=== PATIENT | female | born 1990 | race Caucasian/White ===

== ENCOUNTER 2017-01-27 11:29 | Outpatient (CLI) | payer OTHER ==
[~2017-01-27] VITALS: Ht 167.6 cm; Wt 86.4 kg
[2017-01-27 11:41] VITALS: BP 132/89
[2017-01-27 12:31] LABS: HEMATOCRIT 43.2 % (34.6-47.8); HEMOGLOBIN 14.4 g/dL (11.7-16.4); WHITE BLOOD COUNT 10.2 x10^3/uL (3.4-10)
[2017-01-27 12:36] LABS: PATH.CAST-FLAG NOT PRESENT; SPERM-FLAG NOT PRESENT; SRC-FLAG NOT PRESENT; XTAL-FLAG NOT PRESENT; YLC-FLAG NOT PRESENT
[2017-01-27 12:45] LABS: ASPARTATE AMINO TRANSFERASE 21 U/L (15-37); BLOOD UREA NITROGEN 11 mg/dL (7-18)
== END 2017-01-27 13:43 | disposition home or self-care (01) ==
LOC: LDOP 11:29
PROVIDERS: ATTEND Obstetrics & Gynecology
DX: O13.3 Gestational [pregnancy-induced] hypertension without significant proteinuria, third trimester (principal); Z3A.39 39 weeks gestation of pregnancy
CPT/HCPCS: 36415; 59025; 80053; 81001; 82248; 82570; 84156; 84550; 85025; 86900; 99211; G0463

== ENCOUNTER 2017-01-28 02:17 | Inpatient (IN) | payer OTHER ==
[~2017-01-28] VITALS: Ht 167.6 cm; Wt 86.4 kg
[2017-01-28] MEDS ORDERED: OXYTOCIN 30U/ 0.9% NaCL 500ML 500 ML IV ONE (02:35)
[2017-01-28] MEDS ORDERED: NEWBORN KIT ONE (02:42)
[2017-01-28] MEDS ORDERED: OXYTOCIN 30U/ 0.9% NaCL 500ML 500 ML ONE ×2 (02:42→12:57)
[2017-01-28 02:43] VITALS: BP 136/88
[2017-01-28] MEDS ORDERED: LIDOCAINE 1%, 20ML ONE (02:49)
[2017-01-28] MEDS ORDERED: MISOPROSTOL 200 MCG TABLET ONE (02:49)
[2017-01-28] MEDS: LACTATED RINGERS 1,000 ML IV SCH ×2 (02:56→05:40)
[2017-01-28] MEDS: D5%-LACTATED RINGERS 1,000 ML IV SCH ×2 (02:56→05:44)
[2017-01-28 02:59] LABS: HEMATOCRIT 40.9 % (34.6-47.8); HEMOGLOBIN 13.6 g/dL (11.7-16.4); WHITE BLOOD COUNT 11.8 x10^3/uL (3.4-10)
[2017-01-28 02:59] LABS: PATH.CAST-FLAG NOT PRESENT; SPERM-FLAG NOT PRESENT; SRC-FLAG NOT PRESENT; XTAL-FLAG NOT PRESENT; YLC-FLAG NOT PRESENT
[2017-01-28] MEDS ORDERED: FENTANYL PF 100 MCG/2ML IVPush PRN (03:00)
[2017-01-28] MEDS ORDERED: ONDANSETRON 2MG/ML, 2ML IVPush PRN (03:00)
[2017-01-28] MEDS ORDERED: CALCIUM CARBONATE 500 MG TAB.CHEW PO PRN (03:00)
[2017-01-28] MEDS ORDERED: FENTANYL PF 100 MCG/2ML IV PRN (03:00)
[2017-01-28 03:20] LABS: ASPARTATE AMINO TRANSFERASE 16 U/L (15-37); BLOOD UREA NITROGEN 10 mg/dL (7-18)
[2017-01-28 03:23] LABS: LACTATE DEHYDROGENASE 154 U/L (84-246)
[2017-01-28] MEDS ORDERED: FENTANYL PF 100 MCG/2ML ONE (12:12)
[2017-01-28] MEDS ORDERED: IBUPROFEN 600 MG TABLET ONE (12:52)
[2017-01-28] MEDS ORDERED: OXYcodone/APAP 5/325MG TABLET ONE (12:53)
[2017-01-28] MEDS ORDERED: IBUPROFEN 600 MG TABLET PO PRN ×2 (13:00→20:30)
[2017-01-28] MEDS ORDERED: DOCUSATE 100 MG CAPSULE PO PRN (13:00)
[2017-01-28] MEDS ORDERED: CARBOPROST TROMETHAMINE 250 MCG/ML, 1ML IM PRN ×2 (13:00→20:30)
[2017-01-28] MEDS ORDERED: BISACODYL 10 MG SUPP PR PRN ×2 (13:00→20:30)
[2017-01-28] MEDS ORDERED: OXYcodone/APAP 5/325MG TABLET PO PRN ×2 (13:00)
[2017-01-28] MEDS ORDERED: METOCLOPRAMIDE 5 MG/ML, 2ML IV PRN ×2 (13:00→20:30)
[2017-01-28] MEDS: OXYTOCIN 30U/ 0.9% NaCL 500ML 500 ML IV SCH ×2 (13:00→22:53)
[2017-01-28] MEDS ORDERED: ONDANSETRON 2MG/ML, 2ML IV PRN ×2 (13:00→20:30)
[2017-01-28] MEDS ORDERED: ACETAMINOPHEN 325 MG TABLET PO PRN ×2 (13:00→20:30)
[2017-01-28] MEDS ORDERED: MISOPROSTOL 200 MCG TABLET PR PRN ×2 (13:00→20:30)
[2017-01-28] MEDS ORDERED: GLYCERIN ADULT SUPP PR PRN ×2 (13:00→20:30)
[2017-01-28 14:50] VITALS: BP 128/89
[2017-01-28 17:00] VITALS: BP 146/95
[2017-01-28] MEDS ORDERED: LACTATED RINGERS 500 ML IVBOLUS ONE (17:30)
[2017-01-28 17:37] LABS: HEMATOCRIT 36.6 % (34.6-47.8); HEMOGLOBIN 12.2 g/dL (11.7-16.4); WHITE BLOOD COUNT 20.1 x10^3/uL (3.4-10)
[2017-01-28] MEDS: DOCUSATE 100 MG CAPSULE PO PRN (20:23)
[2017-01-28 20:30] VITALS: BP 130/83
[2017-01-28] MEDS ORDERED: MEASLES,MUMPS&RUBELLA VACC/PF 0.5 ML SQ-VACC ONE (22:30)
[2017-01-29 00:28] VITALS: BP 130/84
[2017-01-29 04:30] VITALS: BP 133/88
[2017-01-29] MEDS: OXYTOCIN 30U/ 0.9% NaCL 500ML 500 ML IV SCH (04:49)
[2017-01-29 07:51] VITALS: BP 136/97
[2017-01-29] MEDS: DOCUSATE 100 MG CAPSULE PO PRN (08:10)
[2017-01-29] MEDS ORDERED: PRENATAL VIT/IRON/FA 1 EACH TABLET PO SCH ×2 (09:00)
[2017-01-29] MEDS ORDERED: IBUP-1222 PO (10:00)
[2017-01-29] MEDS ORDERED: OXYC-302 PO (10:01)
== END 2017-01-29 12:30 | disposition home or self-care (01) | DRG 775 ==
LOC: LDOP 02:17 → LDIP 02:52 → 2NW 14:32
PROVIDERS: ADMIT Obstetrics & Gynecology; ATTEND Obstetrics & Gynecology
PROC: 10E0XZZ Delivery of Products of Conception, External Approach (ICD-10-PCS; principal; 2017-01-28)
PROC: 0HQ9XZZ Repair Perineum Skin, External Approach (ICD-10-PCS; 2017-01-28)
PROC: 3E0234Z Introduction of Serum, Toxoid and Vaccine into Muscle, Percutaneous Approach (ICD-10-PCS; 2017-01-28)
DX: O13.4 Gestational [pregnancy-induced] hypertension without significant proteinuria, complicating childbirth (principal); O70.0 First degree perineal laceration during delivery; Z37.0 Single live birth; Z3A.40 40 weeks gestation of pregnancy; Z23 Encounter for immunization
CPT/HCPCS: 36415; 80053; 81001; 82248; 82570; 83615; 84156; 84550; 85025; 86850; 86900; J3010; J7120; J2590; J7121

== ENCOUNTER 2017-05-16 06:24 | Emergency (ER) | payer OTHER ==
[~2017-05-16] VITALS: Ht 170.2 cm; Wt 74.9 kg
[~2017-05-16 06:24] MED LIST: IBUP-1222 PO; OXYC-302 PO
[2017-05-16] MEDS ORDERED: ONDANSETRON ODT 4 MG PO ONE (07:00)
[2017-05-16 07:34] LABS: HCG UR SG 1.011 (1.003-1.030)
[2017-05-16 08:00] LABS: MICROSCOPIC INDICATED
[2017-05-16 08:04] LABS: CULTURE INDICATED? YES
[2017-05-16 08:25] LABS: RAPID INFLUENZA A Negative (Negative); RAPID INFLUENZA B Negative (Negative)
[2017-05-16 09:03] VITALS: BP 104/63
== END 2017-05-16 09:09 | disposition home or self-care (01) ==
LOC: ED 08:57
DX: N30.90 Cystitis, unspecified without hematuria (principal); K59.00 Constipation, unspecified
CPT/HCPCS: 74018; 81001; 81025; 87086; 87400; 99285

== ENCOUNTER 2018-02-20 05:50 | Emergency (ER) | payer OTHER ==
[~2018-02-20] VITALS: Ht 170.2 cm; Wt 67.0 kg
[2018-02-20 06:37] LABS: MICROSCOPIC AUTO
[2018-02-20 06:38] LABS: CULTURE INDICATED? NO
[2018-02-20 08:33] VITALS: BP 122/72
== END 2018-02-20 08:35 | disposition home or self-care (01) ==
LOC: ED 06:33
DX: O26.891 Other specified pregnancy related conditions, first trimester (principal); N92.4 Excessive bleeding in the premenopausal period
CPT/HCPCS: 36415; 76801; 81001; 84702; 86901; 99285

== ENCOUNTER 2020-09-03 01:29 | Inpatient (IN) | payer OTHER ==
[~2020-09-03] VITALS: Ht 170.2 cm; Wt 86.5 kg
[~2020-09-03 01:29] MED LIST changes: +DOCU-131 PO; -OXYC-302 PO; +OXYC1TAB14 PO
[2020-09-03] MEDS ORDERED: NEWBORN KIT ONE (06:04)
[2020-09-03] MEDS ORDERED: OXYTOCIN 30U/ 0.9% NaCL 500ML 500 ML ONE (06:04)
[2020-09-03] MEDS ORDERED: ALUMINUM/MAG/SIMETHICONE 30 ML UDC PO PRN (06:30)
[2020-09-03] MEDS: LACTATED RINGERS 1,000 ML IV SCH ×6 (06:30→23:30)
[2020-09-03] MEDS ORDERED: FENTANYL PF 100 MCG/2ML IVPush PRN (06:30)
[2020-09-03] MEDS ORDERED: ONDANSETRON 2MG/ML, 2ML IVPush PRN (06:30)
[2020-09-03] MEDS ORDERED: TERBUTALINE 1 MG/ML, 1ML SQ PRN (06:30)
[2020-09-03] MEDS ORDERED: D5%-LACTATED RINGERS 1,000 ML IV SCH (06:30)
[2020-09-03] MEDS ORDERED: FENTANYL PF 100 MCG/2ML IV PRN (06:30)
[2020-09-03] MEDS ORDERED: METOCLOPRAMIDE 5 MG/ML, 2ML IVPush PRN (06:30)
[2020-09-03] MEDS ORDERED: OXYTOCIN 30U/ 0.9% NaCL 500ML 500 ML IV ONE (06:30)
[2020-09-03] MEDS ORDERED: CALCIUM CARBONATE 500 MG TAB.CHEW PO PRN (06:30)
[2020-09-03] MEDS ORDERED: SODIUM CHLORIDE FLUSH 10ML SYR IVF PRN (06:30)
[2020-09-03] MEDS ORDERED: SODIUM CITRATE/CITRIC ACID 30 ML UDC PO PRN (06:30)
[2020-09-03] MEDS ORDERED: PLEASE ENTER HEIGHT AND WEIGHT MC SCH (06:30)
[2020-09-03] MEDS ORDERED: TERBUTALINE 1 MG/ML, 1ML IVPush PRN (06:30)
[2020-09-03 06:32] VITALS: BP 122/62
[2020-09-03 06:38] LABS: BASOPHILS % (AUTO) 1 % (0-1); EOSINOPHILS % (AUTO) 1 % (1-7); LYMPHOCYTES % (AUTO) 27 % (22-44); MEAN CORPUSCULAR HEMOGLOBIN 31.6 pg (27.0-34.8); MEAN CORPUSCULAR HGB CONC 33.6 g/dL (32.4-35.8); MEAN PLATELET VOLUME 7.9 fL (7.4-10.4); MONOCYTES % (AUTO) 8 % (2-9); NEUTROPHILS % (AUTO) 64 % (42-75); PLATELET COUNT 210 x10^3/uL (130-400); RED BLOOD COUNT 4.13 x10^6/uL (3.82-5.3); RED CELL DISTRIBUTION WIDTH 13.9 % (9.6-15.2)
[2020-09-03 06:40] LABS: MD NO
[2020-09-03] MEDS ORDERED: OXYTOCIN 30U/ 0.9% NaCL 500ML 500 ML IV PRN (07:00)
[2020-09-03] MEDS ORDERED: FENTANYL/BUPIV./NS/PF 0 ML EPIDCONT ONE (12:39)
[2020-09-03] MEDS ORDERED: SODIUM CITRATE/CITRIC ACID 15 ML UDC ONE (13:02)
[2020-09-03] MEDS ORDERED: morphine SULFATE/PF 0.5 MG/ML, 10ML ONE (13:18)
[2020-09-03] MEDS ORDERED: DEXAMETHASONE 4 MG/ML, 1ML ONE (13:19)
[2020-09-03] MEDS ORDERED: ONDANSETRON 2MG/ML, 2ML ONE (13:19)
[2020-09-03] MEDS ORDERED: SODIUM CHLORIDE FLUSH 0.9%, 20 ML ONE (13:19)
[2020-09-03] MEDS ORDERED: CEFAZOLIN 1,000 MG ONE (13:19)
[2020-09-03] MEDS ORDERED: OXYTOCIN 10 UNITS/ML, 1ML ONE (13:19)
[2020-09-03] MEDS ORDERED: KETOROLAC 30 MG/1 ML ONE (13:19)
[2020-09-03] MEDS ORDERED: PHENYLEPHRINE 10 MG/ML ONE (13:20)
[2020-09-03] MEDS ORDERED: METOCLOPRAMIDE 5 MG/ML, 2ML IV PRN (13:30)
[2020-09-03] MEDS ORDERED: SODIUM CITRATE/CITRIC ACID 30 ML UDC PO ONE (13:30)
[2020-09-03] MEDS ORDERED: GLYCERIN ADULT SUPP PR PRN (13:30)
[2020-09-03] MEDS: OXYTOCIN 30U/ 0.9% NaCL 500ML 500 ML IV SCH ×2 (13:30→23:30)
[2020-09-03] MEDS ORDERED: MEASLES,MUMPS&RUBELLA VACC/PF 0.5 ML SQ-VACC PRN (13:30)
[2020-09-03] MEDS ORDERED: IBUPROFEN 600 MG TABLET PO PRN (13:30)
[2020-09-03] MEDS ORDERED: LACTATED RINGERS 1,000 ML IVBOLUS ONE (13:30)
[2020-09-03] MEDS ORDERED: BISACODYL 10 MG SUPP PR PRN (13:30)
[2020-09-03] MEDS ORDERED: AZITHROMYCIN 500 MG in SODIUM CHLORIDE 0.9% 250 ML IV ONE (13:30)
[2020-09-03] MEDS ORDERED: ACETAMINOPHEN 325 MG TABLET PO PRN (13:30)
[2020-09-03] MEDS ORDERED: SIMETHICONE 80 MG CHEW TAB PO PRN (13:30)
[2020-09-03] MEDS ORDERED: CARBOPROST TROMETHAMINE 250 MCG/ML, 1ML IM PRN (13:30)
[2020-09-03] MEDS ORDERED: METHYLERGONOVINE 0.2 MG/ML IM PRN (13:30)
[2020-09-03] MEDS ORDERED: DIPH,PERTUSS(ACELL),TET VAC/PF NC IM-VACC PRN (13:30)
[2020-09-03] MEDS ORDERED: ONDANSETRON 2MG/ML, 2ML IV PRN (13:30)
[2020-09-03] MEDS ORDERED: MISOPROSTOL 200 MCG TABLET PR PRN (13:30)
[2020-09-03] MEDS ORDERED: METOCLOPRAMIDE 5 MG/ML, 2ML IV ONE (13:30)
[2020-09-03] MEDS: KETOROLAC 30 MG/1 ML IV SCH ×2 (14:00→20:00)
[2020-09-03 15:55] VITALS: BP 92/54
[2020-09-03 19:43] VITALS: BP 100/63
[2020-09-03 23:50] VITALS: BP 100/61
[2020-09-04] MEDS: OXYcodone/APAP 5/325MG TABLET PO PRN ×3 (00:28→18:25)
[2020-09-04] MEDS: KETOROLAC 30 MG/1 ML IV SCH ×4 (01:59→20:16)
[2020-09-04 03:52] VITALS: BP 96/50
[2020-09-04] MEDS: LACTATED RINGERS 1,000 ML IV SCH (05:30)
[2020-09-04 07:15] VITALS: BP 93/60
[2020-09-04] MEDS: PRENATAL VIT/IRON/FA 1 EACH TABLET PO SCH (08:03)
[2020-09-04] MEDS: DOCUSATE 100 MG CAPSULE PO PRN ×2 (08:03→20:16)
[2020-09-04] MEDS: MEPERIDINE/PF 50 MG/ML IVPush PRN ×2 (08:43→11:51)
[2020-09-04 08:47] LABS: BASOPHILS % (AUTO) 0 % (0-1); EOSINOPHILS % (AUTO) 0 % (1-7); LYMPHOCYTES % (AUTO) 17 % (22-44); MD NO; MEAN CORPUSCULAR HEMOGLOBIN 31.8 pg (27.0-34.8); MEAN CORPUSCULAR HGB CONC 33.4 g/dL (32.4-35.8); MEAN PLATELET VOLUME 7.8 fL (7.4-10.4); MONOCYTES % (AUTO) 10 % (2-9); NEUTROPHILS % (AUTO) 73 % (42-75); PLATELET COUNT 195 x10^3/uL (130-400); RED BLOOD COUNT 3.71 x10^6/uL (3.82-5.3); RED CELL DISTRIBUTION WIDTH 14.2 % (9.6-15.2)
[2020-09-04] MEDS: OXYTOCIN 30U/ 0.9% NaCL 500ML 500 ML IV SCH (09:30)
[2020-09-04 12:15] VITALS: BP 117/72
[2020-09-04 19:26] VITALS: BP 101/64
[2020-09-05] MEDS: OXYcodone/APAP 5/325MG TABLET PO PRN ×2 (00:34→09:56)
[2020-09-05] MEDS: KETOROLAC 30 MG/1 ML IV SCH ×2 (02:32→08:14)
[2020-09-05 07:47] VITALS: BP 100/64
[2020-09-05] MEDS: PRENATAL VIT/IRON/FA 1 EACH TABLET PO SCH (08:14)
[2020-09-05] MEDS: DOCUSATE 100 MG CAPSULE PO PRN (08:14)
[2020-09-05] MEDS ORDERED: OXYC1TAB14 PO (09:39)
[2020-09-05] MEDS ORDERED: IBUP-1222 PO (09:39)
== END 2020-09-05 09:48 | disposition home or self-care (01) | DRG 788 ==
LOC: LDIP 06:01 → 2NW 15:56
PROVIDERS: ADMIT Obstetrics & Gynecology; ATTEND Obstetrics & Gynecology
PROC: 10D00Z1 Extraction of Products of Conception, Low, Open Approach (ICD-10-PCS; principal; 2020-09-03)
DX: O32.1XX0 Maternal care for breech presentation, not applicable or unspecified (principal); Z3A.39 39 weeks gestation of pregnancy; Z37.0 Single live birth; O32.0XX0 Maternal care for unstable lie, not applicable or unspecified; O77.0 Labor and delivery complicated by meconium in amniotic fluid; Z20.822 Contact with and (suspected) exposure to COVID-19; O16.4 Unspecified maternal hypertension, complicating childbirth
CPT/HCPCS: 36415; 85025; 86592; 86850; 86900; 87635; G0378; J0456; J0690; J1100; J1885; J2175; J2274; J2405; J2370; J2590; J2765; J3010; J7050; J7120